=== PATIENT | female | born 1940 | race Caucasian/White ===

== ENCOUNTER 2018-02-01 15:04 | Outpatient (CLI) | payer MEDICARE, MEDICAID ==
[~2018-02-01 15:04] MED LIST: BENAZEPRIL HCL40 MG ORAL; BENICAR HCT 401 EAC1 ORAL; JANUMET 50-5001 EACH ORAL; LIPITOR20 MG ORAL; NEXIUM40 MG ORAL; PLAVIX75 MG ORAL; TENORMIN25 MG ORAL; TRILIPIX45 MG PO; ZOLPIDEM TARTRAT5 MG ORAL
--- NOTE | 2018-02-01 17:25 | Diagnostic Imaging Report ---
Indications:Abdominal pain Technique: Three or 4 views of the right elbow Comparison: None Findings:. No acute fractures. No dislocations. The joint spaces are preserved. The bones are osteoporotic Impression: No acute process
--- NOTE | 2018-02-01 17:26 | Diagnostic Imaging Report ---
Indications:Elbow pain Technique: Three or 4 views of the left elbow Comparison: None Findings: No acute fractures. No dislocations. The joint spaces are preserved. No effusions Impression: Negative
== END 2018-02-01 17:04 | disposition home or self-care (01) ==
LOC: RAD 15:04
DX: M70.22 Olecranon bursitis, left elbow (principal); M70.21 Olecranon bursitis, right elbow; E11.49 Type 2 diabetes mellitus with other diabetic neurological complication; I10 Essential (primary) hypertension; M19.90 Unspecified osteoarthritis, unspecified site; E78.00 Pure hypercholesterolemia, unspecified; I25.10 Atherosclerotic heart disease of native coronary artery without angina pectoris

== ENCOUNTER 2019-08-05 16:20 | Outpatient (CLI) | payer MEDICARE, MEDICAID ==
--- NOTE | 2019-08-05 17:06 | Diagnostic Imaging Report ---
Indication: Cough Technique: 2 views of the chest Comparison: 06/09/2008 Findings: Lungs and pleural spaces are clear. The heart size is normal. The aorta is tortuous and calcified. There are degenerative changes of the thoracic spine. No significant interim change Impression: No acute process
== END 2019-08-05 18:20 | disposition home or self-care (01) ==
LOC: RAD 16:20
DX: R05 Cough (principal); Z01.818 Encounter for other preprocedural examination; E05.90 Thyrotoxicosis, unspecified without thyrotoxic crisis or storm
CPT/HCPCS: 71046